=== PATIENT | male | born 1980 | race Caucasian/White ===

== ENCOUNTER 2020-09-20 10:02 | Inpatient (IN) | payer OTHER ==
[2020-09-20 10:59] VITALS: BMI 25.7
[2020-09-20] MEDS ORDERED: MAGNESIUM CITRATE 300 ML BOTTLE PO PRN (11:23)
[2020-09-20] MEDS ORDERED: MENTHOL/PHENOL 1 EACH UD MM PRN (11:23)
[2020-09-20] MEDS ORDERED: MAGNESIUM HYDROX 2400MG/30ML ORAL SUSPENSION 30 ML CUP PO PRN (11:23)
[2020-09-20] MEDS ORDERED: BISMUTH SUBSALICYLATE 262 MG/15 ML BTL PO PRN (11:23)
[2020-09-20] MEDS ORDERED: ONDANSETRON *ODT* 4 MG TABLET SL PRN (11:23)
[2020-09-20] MEDS ORDERED: MAG HYDROX/AL HYDROX/SIMETH 30 ML UNIT-DOSE CUP PO PRN (11:23)
[2020-09-20] MEDS ORDERED: ACETAMINOPHEN 325 MG TABLET (FP) PO PRN ×2 (11:23)
[2020-09-20] MEDS ORDERED: NICOTINE POLACRILEX 2 MG GUM BUC PRN (11:23)
[2020-09-20] MEDS ORDERED: METHADONE HCL 10 MG TABLET PO SCH (12:30)
[2020-09-20] MEDS ORDERED: METHADONE 40 MG, METHADONE 10 MG PO SCH (12:30)
[2020-09-20] MEDS ORDERED: METHADONE HCL 10 MG TABLET ONE (12:55)
[2020-09-20] MEDS ORDERED: METHADONE HCL 40 MG DISPERSABLE TABLET ONE (12:56)
[2020-09-20] MEDS: diazePAM 5 MG TABLET PO SCH ×3 (13:02→22:28)
[2020-09-20] MEDS: PRENATAL VITAMINS W/ FOLIC ACID TABLET (FP) PO SCH (13:03)
[2020-09-20] MEDS: NICOTINE 21 MG/24 HOURS TOPICAL PATCH TD SCH (13:03)
[2020-09-20] MEDS: hydrOXYzine PAMOATE 25 MG CAPSULE (FP) PO SCH ×3 (13:07→22:28)
[2020-09-20] MEDS: THIAMINE HCL 100 MG TABLET (FP) PO SCH (22:28)
[2020-09-20] MEDS: MELATONIN 5 MG TABLETS PO SCH (22:29)
[2020-09-21] MEDS ORDERED: METHADONE HCL 10 MG TABLET (FOR DETOX USE ONLY) ONE (05:02)
[2020-09-21] MEDS ORDERED: METHADONE HCL 40 MG DISPERSABLE TABLET ONE (05:02)
[2020-09-21] MEDS ORDERED: METHADONE 40 MG, METHADONE (DETOX) 20 MG PO SCH (06:00)
[2020-09-21] MEDS ORDERED: METHADONE HCL 10 MG TABLET PO SCH (06:00)
[2020-09-21] MEDS: diazePAM 5 MG TABLET PO SCH ×4 (06:15→22:29)
[2020-09-21] MEDS: hydrOXYzine PAMOATE 25 MG CAPSULE (FP) PO SCH ×5 (06:15→22:32)
[2020-09-21] MEDS: NICOTINE 21 MG/24 HOURS TOPICAL PATCH TD SCH (10:34)
[2020-09-21] MEDS: PRENATAL VITAMINS W/ FOLIC ACID TABLET (FP) PO SCH (10:35)
[2020-09-21 12:13] LABS: CALCIUM 8.7 mg/dL (8.5-10.1)
[2020-09-21 12:14] LABS: ALBUMIN 3.5 g/dl (3.4-5.0); BLOOD UREA NITROGEN 12.8 mg/dL (7-18)
[2020-09-21 12:17] LABS: CREATININE 0.7 mg/dL (0.55-1.3)
[2020-09-21 12:19] LABS: BILIRUBIN,TOTAL 0.2 mg/dL (0.2-1); TOT PROT 6.6 g/dl (6.4-8.2)
[2020-09-21 13:33] LABS: HIV INTERPRETATION NEGATIVE (NEGATIVE)
[2020-09-21] MEDS: diazePAM 5 MG TABLET PO PRN (14:29)
[2020-09-21] MEDS: MELATONIN 5 MG TABLETS PO SCH (22:28)
[2020-09-21] MEDS: QUEtiapine FUMARATE 100 MG TABLET (FP) PO SCH (22:29)
[2020-09-21] MEDS: THIAMINE HCL 100 MG TABLET (FP) PO SCH (22:29)
[2020-09-22] MEDS ORDERED: METHADONE HCL 40 MG DISPERSABLE TABLET ONE (04:20)
[2020-09-22] MEDS ORDERED: METHADONE HCL 10 MG TABLET ONE (04:20)
[2020-09-22] MEDS ORDERED: METHADONE 40 MG, METHADONE 30 MG PO SCH (06:00)
[2020-09-22] MEDS ORDERED: METHADONE HCL 10 MG TABLET PO SCH (06:00)
[2020-09-22] MEDS: diazePAM 5 MG TABLET PO SCH ×3 (06:20→22:40)
[2020-09-22] MEDS: hydrOXYzine PAMOATE 25 MG CAPSULE (FP) PO SCH ×5 (06:21→22:40)
[2020-09-22] MEDS: NICOTINE 21 MG/24 HOURS TOPICAL PATCH TD SCH (10:29)
[2020-09-22] MEDS: PRENATAL VITAMINS W/ FOLIC ACID TABLET (FP) PO SCH (10:29)
[2020-09-22] MEDS: diazePAM 5 MG TABLET PO PRN (10:30)
[2020-09-22] MEDS: QUEtiapine FUMARATE 100 MG TABLET (FP) PO SCH (22:40)
[2020-09-22] MEDS: THIAMINE HCL 100 MG TABLET (FP) PO SCH (22:40)
[2020-09-22] MEDS: MELATONIN 5 MG TABLETS PO SCH (22:40)
[2020-09-23] MEDS ORDERED: METHADONE HCL 40 MG DISPERSABLE TABLET PO SCH (06:00)
[2020-09-23] MEDS: diazePAM 5 MG TABLET PO SCH ×2 (06:03→17:50)
[2020-09-23] MEDS: hydrOXYzine PAMOATE 25 MG CAPSULE (FP) PO SCH ×5 (06:05→22:25)
[2020-09-23] MEDS: IBUPROFEN 400 MG TABLET (FP) PO PRN (06:05)
[2020-09-23] MEDS: NICOTINE 21 MG/24 HOURS TOPICAL PATCH TD SCH (10:21)
[2020-09-23] MEDS: PRENATAL VITAMINS W/ FOLIC ACID TABLET (FP) PO SCH (10:21)
[2020-09-23] MEDS: cloNIDine HCL 0.1 MG TABLET PO PRN ×2 (10:22→17:49)
[2020-09-23] MEDS: METHOCARBAMOL 500 MG TABLET PO PRN ×2 (14:10→22:27)
[2020-09-23] MEDS: MELATONIN 5 MG TABLETS PO SCH (22:26)
[2020-09-23] MEDS: QUEtiapine FUMARATE 100 MG TABLET (FP) PO SCH (22:26)
[2020-09-23] MEDS: THIAMINE HCL 100 MG TABLET (FP) PO SCH (22:26)
[2020-09-24] MEDS: METHOCARBAMOL 500 MG TABLET PO PRN (05:57)
[2020-09-24] MEDS: hydrOXYzine PAMOATE 25 MG CAPSULE (FP) PO SCH ×2 (05:58→09:06)
[2020-09-24] MEDS ORDERED: METHADONE HCL 40 MG DISPERSABLE TABLET PO SCH (06:00)
[2020-09-24] MEDS ORDERED: diazePAM 5 MG TABLET PO ONE (06:00)
[2020-09-24 07:08] VITALS: TEMP 97
[2020-09-24] MEDS: cloNIDine HCL 0.1 MG TABLET PO PRN (09:06)
[2020-09-24 09:39] VITALS: BP 163/104; PULSE 103
[2020-09-24] MEDS: IBUPROFEN 400 MG TABLET (FP) PO PRN (10:29)
[2020-09-24] MEDS: NICOTINE 21 MG/24 HOURS TOPICAL PATCH TD SCH (10:30)
[2020-09-24] MEDS: PRENATAL VITAMINS W/ FOLIC ACID TABLET (FP) PO SCH (10:30)
[2020-09-24 11:07] LABS: SARS-CoV-2 NAA Not Detected (Not Detected)
== END 2020-09-24 12:27 | disposition other institution (70) | DRG 773 ==
LOC: YASAS 10:02 → Y6N 11:14
PROVIDERS: ADMIT Allergy & Immunology; ATTEND Allergy & Immunology
PROC: HZ2ZZZZ Detoxification Services for Substance Abuse Treatment (ICD-10-PCS; principal; 2020-09-20)
DX: F10.230 Alcohol dependence with withdrawal, uncomplicated (principal); F11.20 Opioid dependence, uncomplicated; F14.10 Cocaine abuse, uncomplicated; F17.210 Nicotine dependence, cigarettes, uncomplicated; F19.280 Other psychoactive substance dependence with psychoactive substance-induced anxiety disorder; Z59.0 Homelessness
CPT/HCPCS: 36415; 80053; 86780; 87389; 93005; 93010; C9803; J0735; Q0162; U0003; U0005

== ENCOUNTER 2020-11-24 10:43 | Inpatient (IN) | payer OTHER ==
[2020-11-24 11:52] VITALS: BMI 23.5
[2020-11-24] MEDS ORDERED: MAG HYDROX/AL HYDROX/SIMETH 30 ML UNIT-DOSE CUP PO PRN (16:18)
[2020-11-24] MEDS ORDERED: methaDONE HCL 10 MG TABLET (FOR DETOX USE ONLY) PO ONE (16:18)
[2020-11-24] MEDS ORDERED: NICOTINE 10 MG CARTRIDGE (INHALER) IH PRN (16:18)
[2020-11-24] MEDS ORDERED: NALOXONE HCL 0.4 MG/ML VIAL IM PRN (16:18)
[2020-11-24] MEDS ORDERED: BISMUTH SUBSALICYLATE 524 MG/30 ML PO PRN (16:18)
[2020-11-24] MEDS ORDERED: MAGNESIUM HYDROX 2400MG/30ML ORAL SUSPENSION 30 ML CUP PO PRN (16:18)
[2020-11-24] MEDS ORDERED: NICOTINE POLACRILEX 2 MG GUM BUC PRN (16:18)
[2020-11-24] MEDS ORDERED: ACETAMINOPHEN 325 MG TABLET (FP) PO PRN (16:18)
[2020-11-24] MEDS ORDERED: MENTHOL/PHENOL 1 EACH UD MM PRN (16:18)
[2020-11-24] MEDS ORDERED: cloNIDine HCL 0.1 MG TABLET PO PRN (16:18)
[2020-11-24] MEDS ORDERED: MAGNESIUM CITRATE 300 ML BOTTLE PO PRN (16:18)
[2020-11-24] MEDS: diazePAM 5 MG TABLET PO SCH ×2 (19:45→22:46)
[2020-11-24] MEDS: METHOCARBAMOL 500 MG TABLET PO PRN (19:46)
[2020-11-24] MEDS: THIAMINE HCL 100 MG TABLET (FP) PO SCH (22:46)
[2020-11-24] MEDS: MELATONIN 5 MG TABLETS PO SCH (22:46)
[2020-11-25] MEDS: diazePAM 5 MG TABLET PO SCH ×4 (07:26→22:25)
[2020-11-25] MEDS: ACETAMINOPHEN 325 MG TABLET (FP) PO PRN (07:28)
[2020-11-25] MEDS: METHOCARBAMOL 500 MG TABLET PO PRN ×2 (07:28→17:21)
[2020-11-25] MEDS ORDERED: methaDONE HCL 10 MG TABLET (FOR DETOX USE ONLY) ONE (08:42)
[2020-11-25] MEDS: PRENATAL VITAMINS W/ FOLIC ACID TABLET (FP) PO SCH (10:32)
[2020-11-25] MEDS: IBUPROFEN 400 MG TABLET (FP) PO PRN (17:21)
[2020-11-25] MEDS: MELATONIN 5 MG TABLETS PO SCH (22:25)
[2020-11-25] MEDS: THIAMINE HCL 100 MG TABLET (FP) PO SCH (22:25)
[2020-11-25] MEDS: QUEtiapine FUMARATE 100 MG TABLET (FP) PO SCH (22:25)
[2020-11-26] MEDS: diazePAM 5 MG TABLET PO SCH ×4 (06:56→22:31)
[2020-11-26] MEDS ORDERED: methaDONE HCL 10 MG TABLET (FOR DETOX USE ONLY) PO ONE (10:00)
[2020-11-26] MEDS: METHOCARBAMOL 500 MG TABLET PO PRN ×2 (10:18→22:30)
[2020-11-26] MEDS: diazePAM 5 MG TABLET PO PRN (10:18)
[2020-11-26] MEDS: PRENATAL VITAMINS W/ FOLIC ACID TABLET (FP) PO SCH (10:19)
[2020-11-26 11:36] LABS: HEMOGLOBIN 13.3 GM/dL (11.7-16.9); MCH 28.4 pg (25.7-33.7); MEAN CELL VOLUME 83.6 fl (80-96); MEAN PLT VOLUME 8.6 fl (7.5-11.1); PLATELET COUNT 242 10^3/uL (134-434); RBC 4.67 M/mm3 (4.00-5.60); WHITE BLOOD COUNT 4.3 K/mm3 (4.0-10.0)
[2020-11-26 11:39] LABS: CALCIUM 8.9 mg/dL (8.5-10.1)
[2020-11-26 11:40] LABS: ALBUMIN 3.7 g/dl (3.4-5.0); BLOOD UREA NITROGEN 16.6 mg/dL (7-18)
[2020-11-26 11:43] LABS: CREATININE 0.9 mg/dL (0.55-1.3)
[2020-11-26 11:44] LABS: BILIRUBIN,TOTAL 0.3 mg/dL (0.2-1)
[2020-11-26] MEDS: IBUPROFEN 400 MG TABLET (FP) PO PRN ×2 (14:40→22:29)
[2020-11-26] MEDS: MELATONIN 5 MG TABLETS PO SCH (22:26)
[2020-11-26] MEDS: THIAMINE HCL 100 MG TABLET (FP) PO SCH (22:26)
[2020-11-26] MEDS: QUEtiapine FUMARATE 100 MG TABLET (FP) PO SCH (22:26)
[2020-11-27] MEDS: diazePAM 5 MG TABLET PO SCH ×2 (05:58→18:11)
[2020-11-27] MEDS: IBUPROFEN 400 MG TABLET (FP) PO PRN ×2 (05:59→18:13)
[2020-11-27] MEDS ORDERED: methaDONE HCL 10 MG TABLET (FOR DETOX USE ONLY) ONE (09:54)
[2020-11-27] MEDS: diazePAM 5 MG TABLET PO PRN (10:28)
[2020-11-27] MEDS: PRENATAL VITAMINS W/ FOLIC ACID TABLET (FP) PO SCH (10:29)
[2020-11-27] MEDS: METHOCARBAMOL 500 MG TABLET PO PRN ×2 (10:30→22:29)
[2020-11-27] MEDS ORDERED: cloNIDine HCL 0.1 MG TABLET PO PRN (12:11)
[2020-11-27] MEDS: MELATONIN 5 MG TABLETS PO SCH (22:27)
[2020-11-27] MEDS: THIAMINE HCL 100 MG TABLET (FP) PO SCH (22:27)
[2020-11-27] MEDS: QUEtiapine FUMARATE 100 MG TABLET (FP) PO SCH (22:27)
[2020-11-27] MEDS: ACETAMINOPHEN 325 MG TABLET (FP) PO PRN (22:28)
[2020-11-28] MEDS: IBUPROFEN 400 MG TABLET (FP) PO PRN (05:48)
[2020-11-28] MEDS ORDERED: diazePAM 5 MG TABLET PO ONE (06:00)
[2020-11-28 09:01] VITALS: BP 144/78; PULSE 69; TEMP 97.1
[2020-11-28] MEDS: PRENATAL VITAMINS W/ FOLIC ACID TABLET (FP) PO SCH (09:55)
[2020-11-28] MEDS: METHOCARBAMOL 500 MG TABLET PO PRN (09:55)
[2020-11-28] MEDS: ACETAMINOPHEN 325 MG TABLET (FP) PO PRN (09:56)
[2020-11-28] MEDS ORDERED: methaDONE HCL 10 MG TABLET (FOR DETOX USE ONLY) PO ONE (10:00)
== END 2020-11-28 10:54 | disposition home or self-care (01) | DRG 773 ==
LOC: YASAS 10:43 → Y3N 18:47
PROVIDERS: ADMIT Allergy & Immunology; ATTEND Allergy & Immunology
PROC: HZ2ZZZZ Detoxification Services for Substance Abuse Treatment (ICD-10-PCS; principal; 2020-11-24)
DX: F11.23 Opioid dependence with withdrawal (principal); F10.230 Alcohol dependence with withdrawal, uncomplicated; F14.20 Cocaine dependence, uncomplicated; F15.10 Other stimulant abuse, uncomplicated; F12.20 Cannabis dependence, uncomplicated; F17.210 Nicotine dependence, cigarettes, uncomplicated; F19.280 Other psychoactive substance dependence with psychoactive substance-induced anxiety disorder; F19.24 Other psychoactive substance dependence with psychoactive substance-induced mood disorder; Z56.0 Unemployment, unspecified; Z59.0 Homelessness
CPT/HCPCS: 36415; 80053; 85027; 86780; C9803; J0735; U0003; U0005

== ENCOUNTER 2021-03-13 16:21 | Inpatient (IN) | payer OTHER ==
[2021-03-13] MEDS ORDERED: METHOCARBAMOL 500 MG TABLET PO PRN (18:37)
[2021-03-13] MEDS ORDERED: BISMUTH SUBSALICYLATE 524 MG/30 ML PO PRN (18:37)
[2021-03-13] MEDS ORDERED: MAG HYDROX/AL HYDROX/SIMETH 30 ML UNIT-DOSE CUP PO PRN (18:37)
[2021-03-13] MEDS ORDERED: ONDANSETRON *ODT* 4 MG TABLET SL PRN (18:37)
[2021-03-13] MEDS ORDERED: ACETAMINOPHEN 325 MG TABLET (FP) PO PRN (18:37)
[2021-03-13] MEDS ORDERED: MAGNESIUM CITRATE 300 ML BOTTLE PO PRN (18:37)
[2021-03-13] MEDS ORDERED: MAGNESIUM HYDROX 2400MG/30ML ORAL SUSPENSION 30 ML CUP PO PRN (18:37)
[2021-03-13] MEDS ORDERED: MENTHOL/PHENOL 1 EACH UD MM PRN (18:37)
[2021-03-13] MEDS: NICOTINE 10 MG CARTRIDGE (INHALER) IH PRN (19:48)
[2021-03-13 19:53] VITALS: BMI 28.1
[2021-03-13] MEDS: hydrOXYzine PAMOATE 25 MG CAPSULE (FP) PO SCH (23:08)
[2021-03-13] MEDS: THIAMINE HCL 100 MG TABLET (FP) PO SCH (23:08)
[2021-03-13] MEDS: MELATONIN 5 MG TABLETS PO SCH (23:08)
[2021-03-14] MEDS: hydrOXYzine PAMOATE 25 MG CAPSULE (FP) PO SCH ×5 (06:10→22:20)
[2021-03-14] MEDS: PRENATAL VITAMINS W/ FOLIC ACID TABLET (FP) PO SCH (10:13)
[2021-03-14] MEDS: NICOTINE 21 MG/24 HOURS TOPICAL PATCH TD SCH (10:13)
[2021-03-14] MEDS ORDERED: diazePAM 5 MG TABLET PO PRN (10:28)
[2021-03-14] MEDS ORDERED: methaDONE HCL 10 MG TABLET PO SCH (11:15)
[2021-03-14] MEDS ORDERED: methaDONE HCL 10 MG TABLET ONE (11:39)
[2021-03-14] MEDS ORDERED: methaDONE HCL 40 MG DISPERSABLE TABLET ONE (11:40)
[2021-03-14] MEDS: methaDONE 40 MG, methaDONE 30 MG PO SCH (11:41)
[2021-03-14] MEDS: diazePAM 5 MG TABLET PO SCH ×3 (11:42→22:21)
[2021-03-14] MEDS: ACETAMINOPHEN 325 MG TABLET (FP) PO PRN (14:43)
[2021-03-14 14:48] LABS: HEMOGLOBIN 13.6 GM/dL (11.7-16.9); MCH 27.7 pg (25.7-33.7); MCHC 33.2 g/dl (32.0-35.9); MEAN CELL VOLUME 83.4 fl (80-96); MEAN PLT VOLUME 8.9 fl (7.5-11.1); PLATELET COUNT 129 10^3/uL (134-434); RBC 4.91 M/mm3 (4.00-5.60); RDW 16.1 % (11.9-15.9); WHITE BLOOD COUNT 3.7 K/mm3 (4.0-10.0)
[2021-03-14 14:50] LABS: CALCIUM 8.5 mg/dL (8.5-10.1)
[2021-03-14 14:51] LABS: ALBUMIN 3.6 g/dl (3.4-5.0); BLOOD UREA NITROGEN 13.2 mg/dL (7-18)
[2021-03-14 14:54] LABS: CREATININE 0.8 mg/dL (0.55-1.3)
[2021-03-14 14:55] LABS: TOT PROT 7.4 g/dl (6.4-8.2)
[2021-03-14 14:56] LABS: BILIRUBIN,TOTAL 0.4 mg/dL (0.2-1)
[2021-03-14] MEDS: IBUPROFEN 400 MG TABLET (FP) PO PRN (20:31)
[2021-03-14] MEDS: MELATONIN 5 MG TABLETS PO SCH (22:20)
[2021-03-14] MEDS: THIAMINE HCL 100 MG TABLET (FP) PO SCH (22:20)
[2021-03-14] MEDS: QUEtiapine FUMARATE 100 MG TABLET (FP) PO SCH (22:20)
[2021-03-15] MEDS ORDERED: methaDONE HCL 40 MG DISPERSABLE TABLET ONE (04:10)
[2021-03-15] MEDS ORDERED: methaDONE HCL 10 MG TABLET ONE (04:10)
[2021-03-15] MEDS: diazePAM 5 MG TABLET PO SCH ×4 (05:14→22:17)
[2021-03-15] MEDS: hydrOXYzine PAMOATE 25 MG CAPSULE (FP) PO SCH ×5 (05:14→22:17)
[2021-03-15] MEDS: methaDONE 40 MG, methaDONE 30 MG PO SCH (05:14)
[2021-03-15] MEDS: ACETAMINOPHEN 325 MG TABLET (FP) PO PRN ×2 (08:42→17:47)
[2021-03-15] MEDS: PRENATAL VITAMINS W/ FOLIC ACID TABLET (FP) PO SCH (10:19)
[2021-03-15] MEDS: NICOTINE 21 MG/24 HOURS TOPICAL PATCH TD SCH (10:23)
[2021-03-15] MEDS: IBUPROFEN 400 MG TABLET (FP) PO PRN ×2 (10:24→22:20)
[2021-03-15] MEDS: CHLORHEXIDINE GLUCONATE 0.12% 15ML CUP MM SCH ×2 (14:32→22:17)
[2021-03-15] MEDS: QUEtiapine FUMARATE 100 MG TABLET (FP) PO SCH (22:17)
[2021-03-15] MEDS: MELATONIN 5 MG TABLETS PO SCH (22:17)
[2021-03-15] MEDS: THIAMINE HCL 100 MG TABLET (FP) PO SCH (22:18)
[2021-03-16] MEDS ORDERED: methaDONE HCL 10 MG TABLET ONE (04:08)
[2021-03-16] MEDS ORDERED: methaDONE HCL 40 MG DISPERSABLE TABLET ONE (04:08)
[2021-03-16] MEDS: methaDONE 40 MG, methaDONE 30 MG PO SCH (05:17)
[2021-03-16] MEDS: hydrOXYzine PAMOATE 25 MG CAPSULE (FP) PO SCH ×5 (05:17→22:11)
[2021-03-16] MEDS: diazePAM 5 MG TABLET PO SCH ×3 (05:17→22:13)
[2021-03-16] MEDS: ACETAMINOPHEN 325 MG TABLET (FP) PO PRN ×2 (08:32→15:09)
[2021-03-16] MEDS: NICOTINE 21 MG/24 HOURS TOPICAL PATCH TD SCH (10:22)
[2021-03-16] MEDS: PRENATAL VITAMINS W/ FOLIC ACID TABLET (FP) PO SCH (10:22)
[2021-03-16] MEDS: CHLORHEXIDINE GLUCONATE 0.12% 15ML CUP MM SCH ×2 (10:22→22:11)
[2021-03-16] MEDS: NICOTINE 10 MG CARTRIDGE (INHALER) IH PRN (10:23)
[2021-03-16] MEDS: IBUPROFEN 400 MG TABLET (FP) PO PRN ×2 (10:24→22:15)
[2021-03-16] MEDS: MELATONIN 5 MG TABLETS PO SCH (22:11)
[2021-03-16] MEDS: QUEtiapine FUMARATE 100 MG TABLET (FP) PO SCH (22:11)
[2021-03-16] MEDS: THIAMINE HCL 100 MG TABLET (FP) PO SCH (22:11)
[2021-03-17] MEDS ORDERED: methaDONE HCL 10 MG TABLET ONE (04:05)
[2021-03-17] MEDS ORDERED: methaDONE HCL 40 MG DISPERSABLE TABLET ONE (04:05)
[2021-03-17] MEDS: hydrOXYzine PAMOATE 25 MG CAPSULE (FP) PO SCH ×5 (06:08→22:20)
[2021-03-17] MEDS: methaDONE 40 MG, methaDONE 30 MG PO SCH (06:08)
[2021-03-17] MEDS: diazePAM 5 MG TABLET PO SCH ×2 (06:08→17:43)
[2021-03-17] MEDS: ACETAMINOPHEN 325 MG TABLET (FP) PO PRN ×2 (06:10→17:44)
[2021-03-17] MEDS: NICOTINE 10 MG CARTRIDGE (INHALER) IH PRN (09:34)
[2021-03-17] MEDS: PRENATAL VITAMINS W/ FOLIC ACID TABLET (FP) PO SCH (10:13)
[2021-03-17] MEDS: NICOTINE 21 MG/24 HOURS TOPICAL PATCH TD SCH (10:13)
[2021-03-17] MEDS: IBUPROFEN 400 MG TABLET (FP) PO PRN ×2 (10:15→22:22)
[2021-03-17] MEDS: CHLORHEXIDINE GLUCONATE 0.12% 15ML CUP MM SCH ×2 (10:57→22:20)
[2021-03-17] MEDS: THIAMINE HCL 100 MG TABLET (FP) PO SCH (22:20)
[2021-03-17] MEDS: QUEtiapine FUMARATE 100 MG TABLET (FP) PO SCH (22:20)
[2021-03-17] MEDS: MELATONIN 5 MG TABLETS PO SCH (22:21)
[2021-03-18] MEDS ORDERED: methaDONE HCL 10 MG TABLET ONE (04:06)
[2021-03-18] MEDS ORDERED: methaDONE HCL 40 MG DISPERSABLE TABLET ONE (04:07)
[2021-03-18] MEDS: methaDONE 40 MG, methaDONE 30 MG PO SCH (05:14)
[2021-03-18] MEDS: ACETAMINOPHEN 325 MG TABLET (FP) PO PRN (05:15)
[2021-03-18] MEDS: hydrOXYzine PAMOATE 25 MG CAPSULE (FP) PO SCH ×2 (05:16→10:17)
[2021-03-18] MEDS ORDERED: diazePAM 5 MG TABLET PO ONE (06:00)
[2021-03-18] MEDS: IBUPROFEN 400 MG TABLET (FP) PO PRN (08:37)
[2021-03-18] MEDS: NICOTINE 10 MG CARTRIDGE (INHALER) IH PRN (08:37)
[2021-03-18 09:00] VITALS: BP 119/70; PULSE 82; TEMP 97.8
[2021-03-18] MEDS: PRENATAL VITAMINS W/ FOLIC ACID TABLET (FP) PO SCH (10:17)
[2021-03-18] MEDS: CHLORHEXIDINE GLUCONATE 0.12% 15ML CUP MM SCH (10:18)
[2021-03-18] MEDS: NICOTINE 21 MG/24 HOURS TOPICAL PATCH TD SCH (10:18)
== END 2021-03-18 11:18 | disposition home or self-care (01) | DRG 773 ==
LOC: YASAS 16:21 → Y3N 18:32 → UNDOADMIN 18:32
PROVIDERS: ADMIT Allergy & Immunology; ATTEND Allergy & Immunology
PROC: HZ2ZZZZ Detoxification Services for Substance Abuse Treatment (ICD-10-PCS; principal; 2021-03-13)
DX: F10.230 Alcohol dependence with withdrawal, uncomplicated (principal); F11.20 Opioid dependence, uncomplicated; F13.20 Sedative, hypnotic or anxiolytic dependence, uncomplicated; F14.10 Cocaine abuse, uncomplicated; F12.10 Cannabis abuse, uncomplicated; F17.210 Nicotine dependence, cigarettes, uncomplicated; F19.24 Other psychoactive substance dependence with psychoactive substance-induced mood disorder; G47.00 Insomnia, unspecified; I73.00 Raynaud's syndrome without gangrene; Z56.0 Unemployment, unspecified; Z59.00 Homelessness unspecified
CPT/HCPCS: 36415; 80053; 85027; 86780; C9803; U0003; U0005

== ENCOUNTER 2021-03-19 20:33 | Inpatient (IN) | payer OTHER ==
[2021-03-19 23:21] VITALS: BMI 27.7
[2021-03-20] MEDS ORDERED: MAGNESIUM HYDROX 2400MG/30ML ORAL SUSPENSION 30 ML CUP PO PRN (00:02)
[2021-03-20] MEDS ORDERED: P-EPHED 60MG/TRIPROLIDI 2.5MG TABLET PO PRN (00:02)
[2021-03-20] MEDS ORDERED: MAG HYDROX/AL HYDROX/SIMETH 30 ML UNIT-DOSE CUP PO PRN (00:02)
[2021-03-20] MEDS ORDERED: guaiFENesin 200 MG/10 ML 10 ML UNIT-DOSE CUPS PO PRN (00:02)
[2021-03-20] MEDS ORDERED: MAGNESIUM CITRATE 300 ML BOTTLE PO PRN (00:02)
[2021-03-20] MEDS ORDERED: MENTHOL/PHENOL 1 EACH UD MM PRN (00:02)
[2021-03-20] MEDS ORDERED: LOPERAMIDE HCL 2 MG CAPSULE PO PRN (00:02)
[2021-03-20] MEDS: ACETAMINOPHEN 325 MG TABLET (FP) PO PRN (06:33)
[2021-03-20] MEDS: hydrOXYzine PAMOATE 25 MG CAPSULE (FP) PO SCH ×5 (06:33→21:10)
[2021-03-20] MEDS ORDERED: methaDONE HCL 10 MG TABLET PO ONE (08:42)
[2021-03-20] MEDS ORDERED: methaDONE 40 MG, methaDONE 30 MG PO ONE (08:50)
[2021-03-20] MEDS: NICOTINE 21 MG/24 HOURS TOPICAL PATCH TD SCH (10:30)
[2021-03-20] MEDS: PRENATAL VITAMINS W/ FOLIC ACID TABLET (FP) PO SCH (10:30)
[2021-03-20] MEDS ORDERED: methaDONE HCL 40 MG DISPERSABLE TABLET ONE (10:31)
[2021-03-20] MEDS ORDERED: methaDONE HCL 10 MG TABLET ONE (10:32)
[2021-03-20] MEDS: IBUPROFEN 400 MG TABLET (FP) PO PRN ×2 (14:02→21:11)
[2021-03-20] MEDS: GABAPENTIN 400 MG CAPSULE PO SCH ×2 (16:17→21:10)
[2021-03-20] MEDS: MELATONIN 5 MG TABLETS PO SCH (21:09)
[2021-03-20] MEDS: THIAMINE HCL 100 MG TABLET (FP) PO SCH (21:09)
[2021-03-20] MEDS: QUEtiapine FUMARATE 100 MG TABLET (FP) PO SCH (21:10)
[2021-03-21] MEDS ORDERED: methaDONE HCL 10 MG TABLET PO SCH (06:00)
[2021-03-21] MEDS: hydrOXYzine PAMOATE 25 MG CAPSULE (FP) PO SCH ×5 (06:30→21:16)
[2021-03-21] MEDS ORDERED: methaDONE HCL 40 MG DISPERSABLE TABLET ONE (06:31)
[2021-03-21] MEDS: GABAPENTIN 400 MG CAPSULE PO SCH ×3 (06:31→21:16)
[2021-03-21] MEDS ORDERED: methaDONE HCL 10 MG TABLET ONE (06:31)
[2021-03-21] MEDS: methaDONE 40 MG, methaDONE 30 MG PO SCH (06:32)
[2021-03-21] MEDS: NICOTINE 10 MG CARTRIDGE (INHALER) IH PRN ×3 (06:34→21:17)
[2021-03-21] MEDS: ACETAMINOPHEN 325 MG TABLET (FP) PO PRN (08:42)
[2021-03-21] MEDS: NICOTINE 21 MG/24 HOURS TOPICAL PATCH TD SCH (09:35)
[2021-03-21] MEDS: PRENATAL VITAMINS W/ FOLIC ACID TABLET (FP) PO SCH (09:36)
[2021-03-21] MEDS: CHLORHEXIDINE GLUCONATE 118 ML MOUTHWASH MM SCH ×2 (12:00→21:16)
[2021-03-21] MEDS: IBUPROFEN 400 MG TABLET (FP) PO PRN ×2 (13:16→21:17)
[2021-03-21] MEDS: QUEtiapine FUMARATE 100 MG TABLET (FP) PO SCH (21:16)
[2021-03-21] MEDS: MELATONIN 5 MG TABLETS PO SCH (21:16)
[2021-03-21] MEDS: THIAMINE HCL 100 MG TABLET (FP) PO SCH (21:16)
[2021-03-22] MEDS ORDERED: methaDONE HCL 40 MG DISPERSABLE TABLET ONE (03:11)
[2021-03-22] MEDS ORDERED: methaDONE HCL 10 MG TABLET ONE (03:12)
[2021-03-22] MEDS: GABAPENTIN 400 MG CAPSULE PO SCH ×3 (06:17→21:39)
[2021-03-22] MEDS: hydrOXYzine PAMOATE 25 MG CAPSULE (FP) PO SCH ×5 (06:17→21:39)
[2021-03-22] MEDS: methaDONE 40 MG, methaDONE 30 MG PO SCH (06:17)
[2021-03-22] MEDS: IBUPROFEN 400 MG TABLET (FP) PO PRN ×3 (06:18→21:42)
[2021-03-22] MEDS: ACETAMINOPHEN 325 MG TABLET (FP) PO PRN ×2 (09:17→18:24)
[2021-03-22] MEDS: PRENATAL VITAMINS W/ FOLIC ACID TABLET (FP) PO SCH (09:18)
[2021-03-22] MEDS: CHLORHEXIDINE GLUCONATE 118 ML MOUTHWASH MM SCH ×2 (09:19→21:40)
[2021-03-22] MEDS: NICOTINE 21 MG/24 HOURS TOPICAL PATCH TD SCH (09:21)
[2021-03-22] MEDS: NICOTINE 10 MG CARTRIDGE (INHALER) IH PRN ×2 (09:21→21:41)
[2021-03-22] MEDS: THIAMINE HCL 100 MG TABLET (FP) PO SCH (21:39)
[2021-03-22] MEDS: QUEtiapine FUMARATE 100 MG TABLET (FP) PO SCH (21:39)
[2021-03-22] MEDS: MELATONIN 5 MG TABLETS PO SCH (21:40)
[2021-03-23] MEDS ORDERED: methaDONE HCL 40 MG DISPERSABLE TABLET ONE (02:47)
[2021-03-23] MEDS ORDERED: methaDONE HCL 10 MG TABLET ONE (02:48)
[2021-03-23] MEDS: IBUPROFEN 400 MG TABLET (FP) PO PRN ×2 (06:19→13:17)
[2021-03-23] MEDS: methaDONE 40 MG, methaDONE 30 MG PO SCH (06:20)
[2021-03-23] MEDS: GABAPENTIN 400 MG CAPSULE PO SCH ×3 (06:20→21:12)
[2021-03-23] MEDS: PRENATAL VITAMINS W/ FOLIC ACID TABLET (FP) PO SCH (09:39)
[2021-03-23] MEDS: CHLORHEXIDINE GLUCONATE 118 ML MOUTHWASH MM SCH ×2 (09:40→21:13)
[2021-03-23] MEDS: NICOTINE 10 MG CARTRIDGE (INHALER) IH PRN ×2 (09:42→15:45)
[2021-03-23] MEDS: ACETAMINOPHEN 325 MG TABLET (FP) PO PRN ×2 (09:42→21:14)
[2021-03-23] MEDS: NICOTINE 21 MG/24 HOURS TOPICAL PATCH TD SCH (09:43)
[2021-03-23] MEDS: THIAMINE HCL 100 MG TABLET (FP) PO SCH (21:12)
[2021-03-23] MEDS: MELATONIN 5 MG TABLETS PO SCH (21:13)
[2021-03-23] MEDS: QUEtiapine FUMARATE 100 MG TABLET (FP) PO SCH (21:13)
[2021-03-24] MEDS ORDERED: methaDONE HCL 40 MG DISPERSABLE TABLET ONE (03:46)
[2021-03-24] MEDS ORDERED: methaDONE HCL 10 MG TABLET ONE (03:47)
[2021-03-24] MEDS: methaDONE 40 MG, methaDONE 30 MG PO SCH (06:36)
[2021-03-24] MEDS: GABAPENTIN 400 MG CAPSULE PO SCH ×3 (06:36→21:03)
[2021-03-24] MEDS: IBUPROFEN 400 MG TABLET (FP) PO PRN ×2 (06:38→21:05)
[2021-03-24] MEDS: NICOTINE 21 MG/24 HOURS TOPICAL PATCH TD SCH (10:03)
[2021-03-24] MEDS: PRENATAL VITAMINS W/ FOLIC ACID TABLET (FP) PO SCH (10:03)
[2021-03-24] MEDS: hydrOXYzine PAMOATE 50 MG CAPSULE (FP) PO PRN (10:03)
[2021-03-24] MEDS: CHLORHEXIDINE GLUCONATE 118 ML MOUTHWASH MM SCH ×2 (10:04→21:05)
[2021-03-24] MEDS: NICOTINE 10 MG CARTRIDGE (INHALER) IH PRN ×2 (13:25→21:04)
[2021-03-24] MEDS: ACETAMINOPHEN 325 MG TABLET (FP) PO PRN (13:27)
[2021-03-24] MEDS: THIAMINE HCL 100 MG TABLET (FP) PO SCH (21:03)
[2021-03-24] MEDS: QUEtiapine FUMARATE 100 MG TABLET (FP) PO SCH (21:03)
[2021-03-24] MEDS: MELATONIN 5 MG TABLETS PO SCH (21:03)
[2021-03-25] MEDS ORDERED: methaDONE HCL 10 MG TABLET ONE (03:30)
[2021-03-25] MEDS ORDERED: methaDONE HCL 40 MG DISPERSABLE TABLET ONE (03:30)
[2021-03-25] MEDS: GABAPENTIN 400 MG CAPSULE PO SCH ×3 (06:17→21:21)
[2021-03-25] MEDS: ACETAMINOPHEN 325 MG TABLET (FP) PO PRN ×2 (06:17→13:15)
[2021-03-25] MEDS: methaDONE 40 MG, methaDONE 30 MG PO SCH (06:18)
[2021-03-25] MEDS: NICOTINE 10 MG CARTRIDGE (INHALER) IH PRN ×3 (08:31→21:22)
[2021-03-25] MEDS: PRENATAL VITAMINS W/ FOLIC ACID TABLET (FP) PO SCH (09:13)
[2021-03-25] MEDS: CHLORHEXIDINE GLUCONATE 118 ML MOUTHWASH MM SCH ×2 (09:13→21:23)
[2021-03-25] MEDS: NICOTINE 21 MG/24 HOURS TOPICAL PATCH TD SCH (09:13)
[2021-03-25] MEDS ORDERED: QUEtiapine FUMARATE 50 MG TABLET ONE (18:57)
[2021-03-25] MEDS: MELATONIN 5 MG TABLETS PO SCH (21:21)
[2021-03-25] MEDS: THIAMINE HCL 100 MG TABLET (FP) PO SCH (21:21)
[2021-03-25] MEDS: QUEtiapine FUMARATE 100 MG TABLET (FP) PO SCH (21:21)
[2021-03-25] MEDS: IBUPROFEN 400 MG TABLET (FP) PO PRN (21:22)
[2021-03-26] MEDS ORDERED: methaDONE HCL 40 MG DISPERSABLE TABLET ONE (03:56)
[2021-03-26] MEDS ORDERED: methaDONE HCL 10 MG TABLET ONE (03:57)
[2021-03-26] MEDS: methaDONE 40 MG, methaDONE 30 MG PO SCH (06:29)
[2021-03-26] MEDS: GABAPENTIN 400 MG CAPSULE PO SCH ×3 (06:29→21:33)
[2021-03-26] MEDS: ACETAMINOPHEN 325 MG TABLET (FP) PO PRN ×2 (06:31→11:31)
[2021-03-26 10:07] LABS: SARS-CoV-2 NAA Not Detected (Not Detected)
[2021-03-26] MEDS: PRENATAL VITAMINS W/ FOLIC ACID TABLET (FP) PO SCH (11:28)
[2021-03-26] MEDS: CHLORHEXIDINE GLUCONATE 118 ML MOUTHWASH MM SCH ×2 (11:28→21:34)
[2021-03-26] MEDS: NICOTINE 10 MG CARTRIDGE (INHALER) IH PRN ×3 (11:29→21:34)
[2021-03-26] MEDS: NICOTINE 21 MG/24 HOURS TOPICAL PATCH TD SCH (11:29)
[2021-03-26] MEDS: hydrOXYzine PAMOATE 50 MG CAPSULE (FP) PO PRN ×2 (11:31→17:14)
[2021-03-26] MEDS: IBUPROFEN 400 MG TABLET (FP) PO PRN (17:14)
[2021-03-26] MEDS: MELATONIN 5 MG TABLETS PO SCH (21:33)
[2021-03-26] MEDS: THIAMINE HCL 100 MG TABLET (FP) PO SCH (21:33)
[2021-03-26] MEDS: QUEtiapine FUMARATE 100 MG TABLET (FP) PO SCH (21:34)
[2021-03-27] MEDS ORDERED: methaDONE HCL 10 MG TABLET ONE (03:23)
[2021-03-27] MEDS ORDERED: methaDONE HCL 40 MG DISPERSABLE TABLET ONE (03:23)
[2021-03-27] MEDS: ACETAMINOPHEN 325 MG TABLET (FP) PO PRN ×3 (06:24→21:08)
[2021-03-27] MEDS: GABAPENTIN 400 MG CAPSULE PO SCH ×3 (06:24→21:08)
[2021-03-27] MEDS: NICOTINE 10 MG CARTRIDGE (INHALER) IH PRN ×4 (06:24→21:08)
[2021-03-27] MEDS: methaDONE 40 MG, methaDONE 30 MG PO SCH (06:24)
[2021-03-27] MEDS: hydrOXYzine PAMOATE 50 MG CAPSULE (FP) PO PRN ×3 (06:24→14:15)
[2021-03-27] MEDS: CHLORHEXIDINE GLUCONATE 118 ML MOUTHWASH MM SCH ×2 (10:06→21:08)
[2021-03-27] MEDS: NICOTINE 21 MG/24 HOURS TOPICAL PATCH TD SCH (10:06)
[2021-03-27] MEDS ORDERED: PT OWN MED DRAWER 7, Y5N ONE (10:06)
[2021-03-27] MEDS: PRENATAL VITAMINS W/ FOLIC ACID TABLET (FP) PO SCH (10:07)
[2021-03-27] MEDS: THIAMINE HCL 100 MG TABLET (FP) PO SCH (21:08)
[2021-03-27] MEDS: MELATONIN 5 MG TABLETS PO SCH (21:08)
[2021-03-27] MEDS: QUEtiapine FUMARATE 100 MG TABLET (FP) PO SCH (21:08)
[2021-03-28] MEDS ORDERED: methaDONE HCL 40 MG DISPERSABLE TABLET ONE (06:18)
[2021-03-28] MEDS ORDERED: methaDONE HCL 10 MG TABLET ONE (06:18)
[2021-03-28] MEDS: methaDONE 40 MG, methaDONE 30 MG PO SCH (06:42)
[2021-03-28] MEDS: ACETAMINOPHEN 325 MG TABLET (FP) PO PRN ×3 (06:43→21:08)
[2021-03-28] MEDS: GABAPENTIN 400 MG CAPSULE PO SCH ×3 (06:43→21:05)
[2021-03-28] MEDS: NICOTINE 10 MG CARTRIDGE (INHALER) IH PRN ×2 (06:44→21:09)
[2021-03-28] MEDS: PRENATAL VITAMINS W/ FOLIC ACID TABLET (FP) PO SCH (10:21)
[2021-03-28] MEDS: NICOTINE 21 MG/24 HOURS TOPICAL PATCH TD SCH (10:21)
[2021-03-28] MEDS: CHLORHEXIDINE GLUCONATE 118 ML MOUTHWASH MM SCH ×2 (10:22→23:20)
[2021-03-28] MEDS: IBUPROFEN 400 MG TABLET (FP) PO PRN (10:23)
[2021-03-28] MEDS: hydrOXYzine PAMOATE 50 MG CAPSULE (FP) PO PRN ×2 (13:45→21:07)
[2021-03-28] MEDS: THIAMINE HCL 100 MG TABLET (FP) PO SCH (21:05)
[2021-03-28] MEDS: MELATONIN 5 MG TABLETS PO SCH (21:05)
[2021-03-28] MEDS: QUEtiapine FUMARATE 100 MG TABLET (FP) PO SCH (21:05)
[2021-03-29] MEDS ORDERED: methaDONE HCL 40 MG DISPERSABLE TABLET ONE (03:28)
[2021-03-29] MEDS ORDERED: methaDONE HCL 10 MG TABLET ONE (03:28)
[2021-03-29] MEDS: methaDONE 40 MG, methaDONE 30 MG PO SCH (06:47)
[2021-03-29] MEDS: NICOTINE 10 MG CARTRIDGE (INHALER) IH PRN ×4 (06:47→21:20)
[2021-03-29] MEDS: GABAPENTIN 400 MG CAPSULE PO SCH ×3 (06:48→21:16)
[2021-03-29] MEDS: ACETAMINOPHEN 325 MG TABLET (FP) PO PRN ×3 (06:48→21:17)
[2021-03-29] MEDS: NICOTINE 21 MG/24 HOURS TOPICAL PATCH TD SCH (10:10)
[2021-03-29] MEDS: PRENATAL VITAMINS W/ FOLIC ACID TABLET (FP) PO SCH (10:10)
[2021-03-29] MEDS: IBUPROFEN 400 MG TABLET (FP) PO PRN (10:12)
[2021-03-29] MEDS: hydrOXYzine PAMOATE 50 MG CAPSULE (FP) PO PRN (10:13)
[2021-03-29] MEDS: CHLORHEXIDINE GLUCONATE 118 ML MOUTHWASH MM SCH (16:11)
[2021-03-29] MEDS: QUEtiapine FUMARATE 100 MG TABLET (FP) PO SCH (21:16)
[2021-03-29] MEDS: THIAMINE HCL 100 MG TABLET (FP) PO SCH (21:16)
[2021-03-29] MEDS: MELATONIN 5 MG TABLETS PO SCH (21:16)
[2021-03-29] MEDS: CHLORHEXIDINE GLUCONATE 0.12% 15ML CUP MM SCH (21:53)
[2021-03-30] MEDS ORDERED: methaDONE HCL 40 MG DISPERSABLE TABLET ONE (06:14)
[2021-03-30] MEDS: hydrOXYzine PAMOATE 50 MG CAPSULE (FP) PO PRN ×2 (06:15→14:10)
[2021-03-30] MEDS: IBUPROFEN 400 MG TABLET (FP) PO PRN ×2 (06:15→14:11)
[2021-03-30] MEDS: GABAPENTIN 400 MG CAPSULE PO SCH ×3 (06:15→21:02)
[2021-03-30] MEDS: methaDONE 40 MG, methaDONE 30 MG PO SCH (06:15)
[2021-03-30] MEDS ORDERED: methaDONE HCL 10 MG TABLET ONE (06:15)
[2021-03-30] MEDS: NICOTINE 10 MG CARTRIDGE (INHALER) IH PRN ×3 (06:18→21:02)
[2021-03-30] MEDS: PRENATAL VITAMINS W/ FOLIC ACID TABLET (FP) PO SCH (09:46)
[2021-03-30] MEDS: NICOTINE 21 MG/24 HOURS TOPICAL PATCH TD SCH (09:46)
[2021-03-30] MEDS: ACETAMINOPHEN 325 MG TABLET (FP) PO PRN ×2 (09:48→21:03)
[2021-03-30] MEDS: CHLORHEXIDINE GLUCONATE 0.12% 15ML CUP MM SCH ×2 (10:25→21:02)
[2021-03-30] MEDS: MELATONIN 5 MG TABLETS PO SCH (21:02)
[2021-03-30] MEDS: QUEtiapine FUMARATE 100 MG TABLET (FP) PO SCH (21:02)
[2021-03-30] MEDS: THIAMINE HCL 100 MG TABLET (FP) PO SCH (21:02)
[2021-03-31] MEDS ORDERED: methaDONE HCL 40 MG DISPERSABLE TABLET ONE (02:42)
[2021-03-31] MEDS ORDERED: methaDONE HCL 10 MG TABLET ONE (02:42)
[2021-03-31] MEDS: ACETAMINOPHEN 325 MG TABLET (FP) PO PRN ×2 (06:11→21:25)
[2021-03-31] MEDS: hydrOXYzine PAMOATE 50 MG CAPSULE (FP) PO PRN ×3 (06:11→21:25)
[2021-03-31] MEDS: GABAPENTIN 400 MG CAPSULE PO SCH ×3 (06:12→21:23)
[2021-03-31] MEDS: methaDONE 40 MG, methaDONE 30 MG PO SCH (06:12)
[2021-03-31] MEDS: NICOTINE 21 MG/24 HOURS TOPICAL PATCH TD SCH (11:45)
[2021-03-31] MEDS: CHLORHEXIDINE GLUCONATE 0.12% 15ML CUP MM SCH ×2 (11:46→21:24)
[2021-03-31] MEDS: PRENATAL VITAMINS W/ FOLIC ACID TABLET (FP) PO SCH (11:46)
[2021-03-31] MEDS: IBUPROFEN 400 MG TABLET (FP) PO PRN (11:47)
[2021-03-31] MEDS: NICOTINE 10 MG CARTRIDGE (INHALER) IH PRN ×2 (11:49→21:26)
[2021-03-31] MEDS: QUEtiapine FUMARATE 100 MG TABLET (FP) PO SCH (21:23)
[2021-03-31] MEDS: THIAMINE HCL 100 MG TABLET (FP) PO SCH (21:24)
[2021-03-31] MEDS: MELATONIN 5 MG TABLETS PO SCH (21:24)
[2021-04-01] MEDS ORDERED: methaDONE HCL 10 MG TABLET ONE (03:08)
[2021-04-01] MEDS ORDERED: methaDONE HCL 40 MG DISPERSABLE TABLET ONE (03:08)
[2021-04-01] MEDS: methaDONE 40 MG, methaDONE 30 MG PO SCH (06:06)
[2021-04-01] MEDS: ACETAMINOPHEN 325 MG TABLET (FP) PO PRN ×3 (06:07→21:12)
[2021-04-01] MEDS: hydrOXYzine PAMOATE 50 MG CAPSULE (FP) PO PRN ×3 (06:07→21:12)
[2021-04-01] MEDS: GABAPENTIN 400 MG CAPSULE PO SCH ×3 (06:07→21:11)
[2021-04-01] MEDS: CHLORHEXIDINE GLUCONATE 0.12% 15ML CUP MM SCH ×2 (09:33→21:11)
[2021-04-01] MEDS: NICOTINE 21 MG/24 HOURS TOPICAL PATCH TD SCH (09:33)
[2021-04-01] MEDS: PRENATAL VITAMINS W/ FOLIC ACID TABLET (FP) PO SCH (09:33)
[2021-04-01] MEDS: NICOTINE 10 MG CARTRIDGE (INHALER) IH PRN ×2 (09:34→13:45)
[2021-04-01] MEDS ORDERED: PT OWN MED DRAWER 7, Y5N ONE (19:05)
[2021-04-01] MEDS: MELATONIN 5 MG TABLETS PO SCH (21:11)
[2021-04-01] MEDS: QUEtiapine FUMARATE 100 MG TABLET (FP) PO SCH (21:11)
[2021-04-01] MEDS: THIAMINE HCL 100 MG TABLET (FP) PO SCH (21:11)
[2021-04-02] MEDS ORDERED: methaDONE HCL 10 MG TABLET ONE (03:48)
[2021-04-02] MEDS ORDERED: methaDONE HCL 40 MG DISPERSABLE TABLET ONE (03:48)
[2021-04-02] MEDS: GABAPENTIN 400 MG CAPSULE PO SCH ×3 (06:09→21:21)
[2021-04-02] MEDS: NICOTINE 10 MG CARTRIDGE (INHALER) IH PRN ×3 (06:09→21:22)
[2021-04-02] MEDS: methaDONE 40 MG, methaDONE 30 MG PO SCH (06:09)
[2021-04-02] MEDS: ACETAMINOPHEN 325 MG TABLET (FP) PO PRN ×2 (06:10→14:32)
[2021-04-02] MEDS: hydrOXYzine PAMOATE 50 MG CAPSULE (FP) PO PRN ×2 (06:11→14:32)
[2021-04-02] MEDS: NICOTINE 21 MG/24 HOURS TOPICAL PATCH TD SCH (09:54)
[2021-04-02] MEDS: CHLORHEXIDINE GLUCONATE 0.12% 15ML CUP MM SCH ×2 (09:54→23:31)
[2021-04-02] MEDS: PRENATAL VITAMINS W/ FOLIC ACID TABLET (FP) PO SCH (09:54)
[2021-04-02] MEDS: IBUPROFEN 400 MG TABLET (FP) PO PRN (09:56)
[2021-04-02] MEDS: QUEtiapine FUMARATE 100 MG TABLET (FP) PO SCH (21:21)
[2021-04-02] MEDS: MELATONIN 5 MG TABLETS PO SCH (21:21)
[2021-04-02] MEDS: THIAMINE HCL 100 MG TABLET (FP) PO SCH (21:21)
[2021-04-03] MEDS ORDERED: methaDONE HCL 40 MG DISPERSABLE TABLET ONE (03:59)
[2021-04-03] MEDS ORDERED: methaDONE HCL 10 MG TABLET ONE (03:59)
[2021-04-03] MEDS: methaDONE 40 MG, methaDONE 30 MG PO SCH (06:47)
[2021-04-03] MEDS: GABAPENTIN 400 MG CAPSULE PO SCH ×3 (06:47→21:11)
[2021-04-03] MEDS: ACETAMINOPHEN 325 MG TABLET (FP) PO PRN ×3 (06:48→21:12)
[2021-04-03] MEDS: hydrOXYzine PAMOATE 50 MG CAPSULE (FP) PO PRN ×3 (06:48→21:11)
[2021-04-03] MEDS: NICOTINE 10 MG CARTRIDGE (INHALER) IH PRN ×3 (06:50→21:11)
[2021-04-03] MEDS: CHLORHEXIDINE GLUCONATE 0.12% 15ML CUP MM SCH ×2 (09:17→21:11)
[2021-04-03] MEDS: NICOTINE 21 MG/24 HOURS TOPICAL PATCH TD SCH (09:17)
[2021-04-03] MEDS: PRENATAL VITAMINS W/ FOLIC ACID TABLET (FP) PO SCH (09:17)
[2021-04-03] MEDS: AMOXICILLIN 500 MG CAPSULE (FP) PO SCH ×2 (09:58→21:11)
[2021-04-03] MEDS: QUEtiapine FUMARATE 100 MG TABLET (FP) PO SCH (21:11)
[2021-04-03] MEDS: MELATONIN 5 MG TABLETS PO SCH (21:11)
[2021-04-03] MEDS: THIAMINE HCL 100 MG TABLET (FP) PO SCH (21:11)
[2021-04-04] MEDS ORDERED: methaDONE HCL 10 MG TABLET ONE (04:10)
[2021-04-04] MEDS ORDERED: methaDONE HCL 40 MG DISPERSABLE TABLET ONE (04:10)
[2021-04-04] MEDS: methaDONE 40 MG, methaDONE 30 MG PO SCH (06:20)
[2021-04-04] MEDS: ACETAMINOPHEN 325 MG TABLET (FP) PO PRN ×2 (06:21→21:05)
[2021-04-04] MEDS: hydrOXYzine PAMOATE 50 MG CAPSULE (FP) PO PRN ×2 (06:21→21:05)
[2021-04-04] MEDS: GABAPENTIN 400 MG CAPSULE PO SCH ×3 (06:21→21:04)
[2021-04-04] MEDS: NICOTINE 10 MG CARTRIDGE (INHALER) IH PRN (06:24)
[2021-04-04] MEDS: NICOTINE 21 MG/24 HOURS TOPICAL PATCH TD SCH (09:50)
[2021-04-04] MEDS: CHLORHEXIDINE GLUCONATE 0.12% 15ML CUP MM SCH ×2 (09:50→21:04)
[2021-04-04] MEDS: PRENATAL VITAMINS W/ FOLIC ACID TABLET (FP) PO SCH (09:50)
[2021-04-04] MEDS: AMOXICILLIN 500 MG CAPSULE (FP) PO SCH ×2 (09:51→21:04)
[2021-04-04] MEDS: IBUPROFEN 400 MG TABLET (FP) PO PRN (09:51)
[2021-04-04] MEDS ORDERED: PT OWN MED DRAWER 7, Y5N ONE (18:45)
[2021-04-04] MEDS: THIAMINE HCL 100 MG TABLET (FP) PO SCH (21:04)
[2021-04-04] MEDS: MELATONIN 5 MG TABLETS PO SCH (21:04)
[2021-04-04] MEDS: QUEtiapine FUMARATE 100 MG TABLET (FP) PO SCH (21:04)
[2021-04-05] MEDS ORDERED: methaDONE HCL 40 MG DISPERSABLE TABLET ONE (02:57)
[2021-04-05] MEDS ORDERED: methaDONE HCL 10 MG TABLET ONE (02:58)
[2021-04-05] MEDS: ACETAMINOPHEN 325 MG TABLET (FP) PO PRN (06:15)
[2021-04-05] MEDS: GABAPENTIN 400 MG CAPSULE PO SCH ×3 (06:15→21:13)
[2021-04-05] MEDS: methaDONE 40 MG, methaDONE 30 MG PO SCH (06:15)
[2021-04-05] MEDS: hydrOXYzine PAMOATE 50 MG CAPSULE (FP) PO PRN ×2 (06:16→21:13)
[2021-04-05] MEDS: AMOXICILLIN 500 MG CAPSULE (FP) PO SCH ×2 (09:32→21:13)
[2021-04-05] MEDS: CHLORHEXIDINE GLUCONATE 0.12% 15ML CUP MM SCH ×2 (09:32→21:14)
[2021-04-05] MEDS: NICOTINE 21 MG/24 HOURS TOPICAL PATCH TD SCH (09:32)
[2021-04-05] MEDS: PRENATAL VITAMINS W/ FOLIC ACID TABLET (FP) PO SCH (09:32)
[2021-04-05] MEDS: NICOTINE 10 MG CARTRIDGE (INHALER) IH PRN ×3 (09:33→21:15)
[2021-04-05] MEDS: QUEtiapine FUMARATE 100 MG TABLET (FP) PO SCH (21:13)
[2021-04-05] MEDS: THIAMINE HCL 100 MG TABLET (FP) PO SCH (21:13)
[2021-04-05] MEDS: MELATONIN 5 MG TABLETS PO SCH (21:14)
[2021-04-06] MEDS ORDERED: methaDONE HCL 40 MG DISPERSABLE TABLET ONE (02:51)
[2021-04-06] MEDS ORDERED: methaDONE HCL 10 MG TABLET ONE (02:52)
[2021-04-06] MEDS: ACETAMINOPHEN 325 MG TABLET (FP) PO PRN (06:20)
[2021-04-06] MEDS: hydrOXYzine PAMOATE 50 MG CAPSULE (FP) PO PRN ×3 (06:20→21:20)
[2021-04-06] MEDS: GABAPENTIN 400 MG CAPSULE PO SCH ×3 (06:20→21:19)
[2021-04-06] MEDS: methaDONE 40 MG, methaDONE 30 MG PO SCH (06:20)
[2021-04-06] MEDS: NICOTINE 10 MG CARTRIDGE (INHALER) IH PRN ×4 (06:25→21:21)
[2021-04-06] MEDS ORDERED: PT OWN MED DRAWER 7, Y5N ONE (07:25)
[2021-04-06] MEDS: PRENATAL VITAMINS W/ FOLIC ACID TABLET (FP) PO SCH (09:32)
[2021-04-06] MEDS: CHLORHEXIDINE GLUCONATE 0.12% 15ML CUP MM SCH ×2 (09:32→21:20)
[2021-04-06] MEDS: NICOTINE 21 MG/24 HOURS TOPICAL PATCH TD SCH (09:32)
[2021-04-06] MEDS: AMOXICILLIN 500 MG CAPSULE (FP) PO SCH ×2 (09:32→21:19)
[2021-04-06] MEDS: IBUPROFEN 400 MG TABLET (FP) PO PRN (09:33)
[2021-04-06] MEDS: MELATONIN 5 MG TABLETS PO SCH (21:20)
[2021-04-06] MEDS: QUEtiapine FUMARATE 100 MG TABLET (FP) PO SCH (21:20)
[2021-04-06] MEDS: THIAMINE HCL 100 MG TABLET (FP) PO SCH (21:20)
[2021-04-07] MEDS ORDERED: methaDONE HCL 10 MG TABLET ONE (05:50)
[2021-04-07] MEDS ORDERED: methaDONE HCL 40 MG DISPERSABLE TABLET ONE (05:50)
[2021-04-07] MEDS: GABAPENTIN 400 MG CAPSULE PO SCH ×3 (06:41→21:10)
[2021-04-07] MEDS: methaDONE 40 MG, methaDONE 30 MG PO SCH (06:42)
[2021-04-07] MEDS: NICOTINE 10 MG CARTRIDGE (INHALER) IH PRN ×3 (06:42→21:11)
[2021-04-07] MEDS: AMOXICILLIN 500 MG CAPSULE (FP) PO SCH ×2 (09:33→21:10)
[2021-04-07] MEDS: NICOTINE 21 MG/24 HOURS TOPICAL PATCH TD SCH (09:33)
[2021-04-07] MEDS: PRENATAL VITAMINS W/ FOLIC ACID TABLET (FP) PO SCH (09:33)
[2021-04-07] MEDS: CHLORHEXIDINE GLUCONATE 0.12% 15ML CUP MM SCH ×2 (09:33→21:12)
[2021-04-07] MEDS: QUEtiapine FUMARATE 100 MG TABLET (FP) PO SCH (21:10)
[2021-04-07] MEDS: MELATONIN 5 MG TABLETS PO SCH (21:11)
[2021-04-07] MEDS: THIAMINE HCL 100 MG TABLET (FP) PO SCH (21:11)
[2021-04-07] MEDS: hydrOXYzine PAMOATE 50 MG CAPSULE (FP) PO PRN (21:11)
[2021-04-08] MEDS ORDERED: methaDONE HCL 40 MG DISPERSABLE TABLET ONE (03:11)
[2021-04-08] MEDS ORDERED: methaDONE HCL 10 MG TABLET ONE (03:11)
[2021-04-08] MEDS: hydrOXYzine PAMOATE 50 MG CAPSULE (FP) PO PRN (06:23)
[2021-04-08] MEDS: GABAPENTIN 400 MG CAPSULE PO SCH (06:23)
[2021-04-08] MEDS: methaDONE 40 MG, methaDONE 30 MG PO SCH (06:23)
[2021-04-08] MEDS: NICOTINE 10 MG CARTRIDGE (INHALER) IH PRN (06:24)
[2021-04-08] MEDS: ACETAMINOPHEN 325 MG TABLET (FP) PO PRN (06:24)
[2021-04-08 06:42] VITALS: BP 126/68; PULSE 60; TEMP 98.1
[2021-04-08] MEDS: PRENATAL VITAMINS W/ FOLIC ACID TABLET (FP) PO SCH (09:00)
[2021-04-08] MEDS: NICOTINE 21 MG/24 HOURS TOPICAL PATCH TD SCH (09:09)
[2021-04-08] MEDS: CHLORHEXIDINE GLUCONATE 0.12% 15ML CUP MM SCH (09:09)
[2021-04-08] MEDS: AMOXICILLIN 500 MG CAPSULE (FP) PO SCH (09:09)
== END 2021-04-08 09:01 | disposition home or self-care (01) | DRG 772 ==
LOC: YASAS 20:33 → Y3W 03-20 01:02
PROVIDERS: ADMIT Allergy & Immunology; ATTEND Allergy & Immunology
PROC: HZ42ZZZ Group Counseling for Substance Abuse Treatment, Cognitive-Behavioral (ICD-10-PCS; principal; 2021-03-20)
DX: F10.20 Alcohol dependence, uncomplicated (principal); F11.20 Opioid dependence, uncomplicated; F13.20 Sedative, hypnotic or anxiolytic dependence, uncomplicated; F14.20 Cocaine dependence, uncomplicated; F12.20 Cannabis dependence, uncomplicated; F17.210 Nicotine dependence, cigarettes, uncomplicated; F41.9 Anxiety disorder, unspecified; Z56.0 Unemployment, unspecified; Z59.00 Homelessness unspecified
CPT/HCPCS: 87811; C9803; U0003; U0005